=== PATIENT | male | born 1955 | race Caucasian/White ===

== ENCOUNTER → 2016-08-18 | Outpatient (CLI) | payer BC ==
--- NOTE | 2016-08-18 17:23 | PCVCIMAG ---
APPROVED REPORT Study performed: 08/18/2016 15:43:20 EXAM: Comprehensive 2D, Doppler, and color-flow Echocardiogram Patient Location: Echo lab Status: routine Other Information Study Quality: Adequate Risk Factors: Cardiac Risk Factors: HTN, Hyperlipidemia,cad, stent Indications CAD Hypertension/HDD HX stent 2D Dimensions LVEF(%): 63.68 (>50%) IVSd: 7.02 (7-11mm) LVDd: 50.67 mm PWd: 7.62 (7-11mm)Ascending Ao: 21.57 (22-36mm) LVDs: 33.05 (25-40mm) Left Atrium: 32.95 (27-40mm) Aortic Root: 33.05 mm LV Single Plane 4CH: 57.92 % LV Single Plane 2CH: 55.18 %Harper's LVEF: 56.55 % Biplane EF: 56.1 % Volumes Left Atrial Volume (Systole) Single Plane 4CH: 66.58 mLSingle Plane 2CH: 73.83 mL LA ESV Index: 36.00 mL/m2 Aortic Valve AoV Peak Darren.: 1.03 m/s AO Peak Gr.: 4.27 mmHgLVOT Max P.14 mmHg LVOT Max V: 1.02 m/s Mitral Valve E/A Ratio: 1.3 MV Decel. Time: 144.86 ms MV E Max Darren.: 0.58 m/s MV A Darren.: 0.46 m/s IVRT: 93.43 ms Pulmonary Valve PV Peak Darren.: 0.96 m/sPV Peak Gr.: 3.72 mmHg Pulmonary Vein P Vein S: 0.44 m/sP Vein A: 0.36 m/s P Vein D: 0.56 m/sP Vein A Dur.: 128.0 msec P Vein S/D Ratio: 0.79 Tricuspid Valve TR Peak Darren.: 2.13 m/s TR Peak Gr.: 18.21 mmHg TV Vmax: 0.52 m/s Left Ventricle The left ventricle is normal size. There is normal LV segmental wall motion. There is normal left ventricular wall thickness. Left ventricular systolic function is normal. The left ventricular ejection fraction is within the normal range. Right Ventricle The right ventricle is normal size. The right ventricular systolic function is normal. Atria The left atrium size is normal. The right atrium size is normal. Aortic Valve The aortic valve is normal in structure. Mild sclerotic changes seen No aortic regurgitation is present. There is no aortic valvular stenosis. Mitral Valve The mitral valve is normal in structure. Mild mitral regurgitation. No evidence of mitral valve stenosis. Tricuspid Valve The tricuspid valve is normal in structure. There is mild tricuspid valve regurgitation noted. Pulmonic Valve The pulmonary valve is normal in structure. There is no pulmonic valvular stenosis. There is no pulmonic valvular regurgitation. There is no pulmonic valve vegetations. Great Vessels The aortic root is normal in size. IVC is normal in size and collapses with >50% inspiration Pericardium There is no pericardial effusion. <Conclusion> The left ventricle is normal size. Left ventricular systolic function is normal. The right ventricle is normal size. The left atrium size is normal. The aortic valve is normal in structure. Mild sclerotic changes seen Mild mitral regurgitation. There is mild tricuspid valve regurgitation noted. There is no pericardial effusion.
--- NOTE | 2016-08-18 17:25 | PCVCIMAG ---
APPROVED REPORT Exam: Stress Echocardiogram Indication: CAD s/p PCI,stent Patient Location: Echo lab Stress Nurse: Tessy Caballero RN Status: routine HR: 59 bpm Rhythm: RBBB Medical History Medical History: CAD s/p stent Medications: Bystolic Previous Cardiac Procedures: PCI Pretest Chest Pain Characteristics: No chest pain Exercise History: Physically active Procedure The patient underwent Stress Test using the Konstantin Protocol. Blood pressure, heart rate, and EKG were monitored. An Echocardiogram was performed by wireless cellular technician in four stages in quad fashion. At peak stress, four selected images were obtained and placed side by side with resting images for comparison. Stress Test Details Stress Test: Exercise stress testing was performed using a Konstantin protocol. HR Resting HR: 59 bpmMax Heart Rate (APMHR): 161 bpm Max HR Achieved: 155 bpmTarget HR (85% APMHR): 136 bpm % of APMHR: 96 Recovery HR: 86 bpm HR response to stress: Normal HR response to stress BP Resting BP: 152/96 mmHg Max BP: 182/92 mmHg Recovery BP: 146/80 mmHg ECG Resting ECG: Sinus Rhythm, RBBB Stress ECG: Sinus Rhythm, RBBB ST Change: Non-ischemic Arrhythmia: Occasional couplet PVCs,short runs of bigeminy Recovery ECG: Sinus Rhythm, RBBB Recovery Arrhythmia: None Clinical Reason for Termination: Maximal effort Stress Symptoms: NONE Exercise duration: 13 min 04 sec Highest Stage Achieved: Stage 5: 5.0 mph at 18% grade. Exercise capacity: 17.2 METs Overall Exercise Capacity for Age: Excellent Scale: Active Angina Score: None Pre-Stress Echo The resting Echocardiogram showed normal left ventricular contractility with an estimated Ejection Fraction of about >55%. Normal wall motion in all segments on baseline images. Post-Stress Echo The stress Echocardiogram showed normal left ventricular contractility with an estimated Ejection Fraction of about 65-70%. Normal augmentation of wall motion in all segments on post stress images. Clinical No clinical or ECG evidence for ischemia. Conclusion Clinical Response: Non-ischemic Exercise Capacity: Superior Stress ECG Response: Non-ischemic Stress Echo Images: Non-ischemic Normal stress echocardiogram with maximal exercise stress. No clinical, EKG or echocardiographic evidence for ischemia. <Conclusion> Normal stress echocardiogram with maximal exercise stress. No clinical, EKG or echocardiographic evidence for ischemia.
== END | disposition home or self-care (01) ==
LOC: PCVCIMAG 14:43
PROVIDERS: ATTEND Internal Medicine Cardiovascular Disease
DX: I45.10 Unspecified right bundle-branch block (principal); I08.1 Rheumatic disorders of both mitral and tricuspid valves; I25.10 Atherosclerotic heart disease of native coronary artery without angina pectoris; I10 Essential (primary) hypertension; E78.00 Pure hypercholesterolemia, unspecified; K21.9 Gastro-esophageal reflux disease without esophagitis; Z79.82 Long term (current) use of aspirin; Z79.899 Other long term (current) drug therapy
CPT/HCPCS: 93306; 93351; G0463